=== PATIENT | male | born 1970 | race Caucasian/White ===

== ENCOUNTER 2018-07-06 15:25 | Emergency (ER) | payer BC ==
[2018-07-06] MEDS ORDERED: methylPREDNISolone 125 MG* 2 ML VIAL IM ONE (15:29)
--- NOTE | 2018-07-06 15:36 | UC ---
Skin Complaint HPI - HPI Summary HPI Summary: Stung by wasp on lower lip approx 30 minutes ago, now has severe swelling of lower face. Denies hives, vomiting, trouble breathing, chest pain, or passing out. No prior anaphylaxis to insect stings. Reports sting on forehead about a month ago that made his eye swell shut after the fact. - History of Current Complaint Time Seen by Provider: 07/06/18 15:29 Stated Complaint: ALLERGIC REACTION BEE STING Hx Obtained From: Patient Onset/Duration: Sudden Onset Skin Exposure Onset/Duration: Minutes Ago Timing: Constant Onset Severity: Moderate Current Severity: Moderate Location: Discrete Character: Swelling Aggravating Factor(s): Touch Associated Signs & Symptoms: Positive: Negative Related History: Insect Bite/Sting - Allergy/Home Medications Allergies/Adverse Reactions: Allergies Allergy/AdvReac Type Severity Reaction Status Date / Time No Known Allergies Allergy Verified 07/06/18 15:32 Home Medications: Home Medications Atorvastatin* [Lipitor 10 MG*] 1 tab QAM 07/06/18 [History Confirmed 07/06/18] Olmesartan Medoxomil [Benicar] 5 - 20 mg DAILY 07/06/18 [History Confirmed 07/06] Review of Systems Constitutional: Negative Skin: Other - swelling Eyes: Negative ENT: Negative Respiratory: Negative Cardiovascular: Negative Gastrointestinal: Negative Genitourinary: Negative Motor: Negative Neurovascular: Negative Musculoskeletal: Negative Neurological: Negative Psychological: Negative Is Patient Immunocompromised?: No All Other Systems Reviewed And Are Negative: Yes PMH/Surg Hx/FS Hx/Imm Hx - Surgical History Surgical History: Yes Surgery Procedure, Year, and Place: knee surgery. benign tumors removed. hernia - Social History Alcohol Use: Daily Alcohol Amount: 4 beers daily Substance Use Type: None When Did the Patient Quit Smoking/Using Tobacco: 14 years ago - Immunization History Most Recent Influenza Vaccination: not this season Physical Exam Triage Information Reviewed: Yes Appearance: No Pain Distress Vital Signs Reviewed: Yes Eye Exam: Normal Eyes: Positive: Conjunctiva Clear ENT: Positive: Pharynx normal - no evidence of posterior tongue or retropharyngeal swelling, Other - marked swelling of lower lip. Negative: Nasal congestion, Nasal drainage, Hoarse voice - speech is clear, no swelling in tongue Dental Exam: Normal Neck exam: Normal Neck: Positive: Supple, Nontender, No Lymphadenopathy Respiratory Exam: Normal Respiratory: Positive: Chest non-tender, Lungs clear, Normal breath sounds, No respiratory distress, No accessory muscle use Cardiovascular Exam: Normal Cardiovascular: Positive: RRR, No Murmur Musculoskeletal Exam: Normal Neurological Exam: Normal Neurological: Positive: Alert Psychological Exam: Normal Skin Exam: Other - marked symmetric tense swelling of entire lower lip and jaw Re-Evaluation - Re-Evaluation First Eval Re-Evaluation Time: 15:55 Change: Improved - Swelling slightly better, pt reports feeling less swollen Second Eval Re-Evaluation Time: 16:15 Change: Improved - Interval improvement from first re-evaluation; swelling less pronounced and less tense. Third Eval Re-Evaluation Time: 16:36 Change: Improved - Marked visual and subjecting improvement Course/Dx - Diagnoses Provider Diagnoses: Insect sting, large local reaction. Elevated blood pressure due to anxiety Discharge - Sign-Out/Discharge Documenting (check all that apply): Patient Departure - Discharge Plan Condition: Stable Disposition: HOME Prescriptions: predniSONE TAB* [Deltasone TAB*] 50 mg PO DAILY #4 tab Patient Education Materials: Insect Bite or Sting (ED) Referrals: Forest Donovan DO [Primary Care Provider] - Additional Instructions: You can continue to use ice and diphenhydramine 25-50mg four times daily as needed for swelling. If you develop difficulty with swallowing, speaking, or breathing, please dial 911. If you have other worrisome symptoms, such as chest pain, hives, or fainting, you should also go to the emergency department. - Billing Disposition and Condition Condition: STABLE Disposition: Home
[2018-07-06 15:42] VITALS: BP 134/75
== END 2018-07-06 16:40 | disposition home or self-care (01) ==
LOC: UCCORT 15:25
DX: T63.461A Toxic effect of venom of wasps, accidental (unintentional), initial encounter (principal); R22.0 Localized swelling, mass and lump, head; Y92.9 Unspecified place or not applicable
CPT/HCPCS: 96372; 99201; G0463; J2930